=== PATIENT | male | born 1950 ===

== ENCOUNTER → 2022-03-28 13:33 | Outpatient (CLI) | payer OTHER, SELFPAY ==
[2022-03-28 14:18] LABS: COVID19 -Nasal RAPID Negative (Negative)
== END ==
PROVIDERS: Visit Provider Physician Assistant
DX: Z20.822 Contact with and (suspected) exposure to COVID-19 (principal)
CPT/HCPCS: 87635

== ENCOUNTER 2024-03-04 00:15 | Observation (INO) | payer OTHER, SELFPAY ==
[2024-03-04] VITALS (12 sets, daily range): BP systolic 131–172; BP diastolic 63–95; PULSE 56–83; RESP 15–18; TEMP 36.7–36.9; O2SAT 93–98; BMI 25.8; BMI 26.2
--- NOTE | 2024-03-04 00:52 | DI.CT.S_ITS ---
PROCEDURE: CT ABDOMEN PELVIS W CON INDICATIONS: ABD DISTENSION, N/V TECHNIQUE: After the administration of intravenous contrast, axial sections acquired from the lung bases to the pubic symphysis. Coronal and sagittal reformats were performed. For radiation dose reduction, the following was used: automated exposure control, adjustment of mA and/or kV according to patient size. COMPARISON: None. FINDINGS: Image quality: Diagnostic. Lower Chest: Bilateral lung bases are clear. Heart size is enlarged, no pericardial effusion. ABDOMEN: Liver: No solid mass. There is mild hepatomegaly. Gallbladder: No radiopaque gallstones or wall thickening. Biliary ducts: No biliary dilation. Pancreas: No ductal dilation. Spleen: Size is within normal limits. A few calcified granuloma are seen scattered in splenic parenchyma. Adrenal Glands: No adrenal nodules. Kidneys and Ureters: No hydronephrosis. No solid mass. No complex renal cystic lesion which requires follow up. Stomach and Bowel: There is fluid distended stomach and small bowel loops with a few air-fluid levels. Zone of transition is noted in right lower quadrant abdomen involving distal ileal loop best seen on series 2 image 78 and series 3, image 25. No abnormal bowel wall thickening. No abscess collection. Peritoneum: No abnormal intraperitoneal fluid. No free air. Ventral Wall: No significant ventral hernia. Abdominal Nodes: No retroperitoneal or mesenteric adenopathy by size criteria. Vessels: Aorta and inferior vena cava are normal in size. PELVIS: Pelvic Organs: Unremarkable. Bladder: No bladder wall thickening, accounting for underdistention. Pelvic Nodes: No enlarged lymph nodes. Miscellaneous: No inguinal hernias are seen. Bones: No aggressive osseous abnormality. IMPRESSION: 1. Finding is concerning for distal small bowel obstruction with zone of transition involving distal ileum in right lower quadrant as described above. No significant bowel wall thickening. No peritoneal free fluid or free air. 2. Mild hepatomegaly. No discrete hepatic lesion. Calcified granuloma scattered in spleen. Dictated by: Tomas Solano M.D. on 03/04/2024 at 1:48 Approved by: Tomas Solano M.D. on 03/04/2024 at 1:52
--- NOTE | 2024-03-04 01:02 | ED_ITS ---
HPI - Abdominal Pain General Chief Complaint: Abdominal Pain Stated Complaint: n/v abd pain Time Seen by Provider: 03/04/24 00:17 Source: patient Mode of arrival: Ambulatory History of Present Illness HPI narrative: 74-year-old male with history of hypertension, hyperlipidemia presents by private vehicle from home for several hours of abdominal distention with nausea and 1 episode of emesis. Patient states after dinner this evening he felt severe bloating and nausea that has not improved since onset. He states that this has never happened before. Has not had a bowel movement or passed gas since symptom onset. Patient states that previously he has been in his usual state of good health. Surgical history includes tonsillectomy and appendectomy as a child Related Data Home Medications Medication Instructions Recorded Confirmed amlodipine 5 mg tablet 5 mg PO DAILY 03/04/24 03/04/24 dorzolamide 22.3 mg-timolol 6.8 1 drp EYE-BOTH BID 03/04/24 03/04/24 mg/mL eye drops prednisolone acetate 1 % eye drp EYE-LEFT 03/04/24 drops,suspension Allergies Allergy/AdvReac Type Severity Reaction Status Date / Time No Known Drug Allergies Allergy Unverified 03/28/22 11:48 Patient History Social History Smoking Status: Former smoker Smoking Status: Former smoker Substance Use Type: does not use Exam Initial Vital Signs Initial Vital Signs: Vital Signs Temperature 98.5 F 03/04/24 00:31 Pulse Rate 83 03/04/24 00:31 Respiratory Rate 16 03/04/24 00:31 Blood Pressure 140/85 03/04/24 00:31 Pulse Oximetry 96 03/04/24 00:31 Oxygen Delivery Method Room Air 03/04/24 00:31 Const: Awake, alert, no acute distress, nontoxic appearing Cardiac: regular rate, regular rhythm RESP: unlabored, clear bilaterally, no wheezing GI: soft, distended, tenderness to deep palpation midepigastric region of abdomen MSK: Atraumatic, full range of motion, pulses equal Skin: Warm, Dry, intact, no rashes Neuro: AO x3, CN II-XII grossly intact, moves all extremities Course Orders Ordered: ED Orders 03/04/24 00:49 CBC Auto Diff [Complete Blood Count AUTO DIFF] Stat CMP [Comprehensive Metabolic Panel] Stat Lactate (Lactic Acid) Stat Lipase Stat Troponin & CK Cardiac Panel Stat 03/04/24 00:52 CT abdomen pelvis w con Stat 03/04/24 00:53 EKG-12 Lead Stat Sodium Chloride (Normal Saline 0.9%) 1,000 mls @ 125 mls/hr IV CONT [place] Metoclopramide HCl (Metoclopramide 10 Mg/2 Ml Inj) 10 mg IV Q6H [place] Morphine Sulfate (Morphine 2 Mg/Ml Inj) 2 mg IV Q4HR PRN PRN Reason: Pain, Severe (7-10) Discontinued Medications Sodium Chloride (Normal Saline 0.9%) 1,000 mls @ 1,000 mls/hr IV BOLUS ONE Stop: 03/04/24 01:51 Last Infusion: 03/04/24 02:16 Dose: Infused Documented By: Admin: 03/04/24 01:14 Dose: 1,000 mls/hr Documented By: CARTER Morphine Sulfate (Morphine 4 Mg/Ml Inj) 4 mg IV NOW ONE Stop: 03/04/24 00:53 Last Admin: 03/04/24 01:15 Dose: 4 mg Documented By: CARTER Ondansetron HCl (Ondansetron 4 Mg/2 Ml Inj) 4 mg IV NOW ONE Stop: 03/04/24 00:53 Last Admin: 03/04/24 01:14 Dose: 4 mg Documented By: CARTER Vital Signs Vital signs: Vital Signs - 8 hr 03/04/24 00:31 Temperature 98.5 F Pulse Rate 83 Respiratory Rate 16 Blood Pressure 140/85 Pulse Oximetry 96 Oxygen Delivery Method Room Air MDM - Abdominal Pain Differential Diagnosis Differential diagnosis: Likely abdominal pain, acute appendicitis and calculus of kidney Lab Data 03/04/24 00:49 03/04/24 00:49 Labs: Lab Results 03/04/24 Range/Units 00:49 WBC 15.7 H (4.5-11.0) X10^3/uL RBC 5.01 (4.5-5.9) X10^6/uL Hgb 14.9 (13.5-17.5) g/dL Hct 43.0 (41-53) % MCV 85.8 (80-100) fL MCH 29.8 (26-34) PG MCHC 34.7 (30-36) % RDW 13.1 (11.6-14.8) % Plt Count 291 (150-400) X10^3/uL Neut % (Auto) 86.5 H (50-75) % Lymph % (Auto) 6.5 L (25-40) % [place] % (Auto) 5.0 (3-14) % Eos % (Auto) 1.4 L (2-4) % Baso % (Auto) 0.6 (0-2) % Neut # (Auto) 97587 H (5985-9938) /uL Lymph # (Auto) 1000 L (4851-8408) /uL [place] # (Auto) 800 (0-900) /uL Eos # (Auto) 200 (0-450) /uL Baso # (Auto) 100 (0-100) /uL Sodium 135 L (137-145) mmol/L Potassium 4.2 (3.4-5.1) mmol/L Chloride 104 (98-107) mmol/L Carbon Dioxide 25 (22-32) mmol/L BUN 13 (9-20) mg/dL Creatinine 0.81 (0.66-1.25) mg/dL Estimated GFR > 60 (>60) mL/min BUN/Creatinine Ratio 16.0 (6-22) Glucose 163 H (80-110) mg/dL Lactate 0.9 (0.7-2.1) mmol/L Calcium 10.0 (8.4-10.2) mg/dL Total Bilirubin 0.6 (0.2-1.3) mg/dL AST 35 (17-59) IU/L ALT 26 (<50) IU/L Alkaline Phosphatase 100 (38-126) U/L Total Creatine Kinase 105 (55-170) U/L Troponin I < 0.012 (0.01-0.034) ng/mL Total Protein 8.3 H (6.3-8.2) g/dL Albumin 4.9 (3.5-5.0) g/dL Globulin 3.4 (1.7-4.1) g/dL Albumin/Globulin Ratio 1.4 (1.0-2.8) Lipase 630 H (23-300) U/L Imaging Data CT scan - abdomen/pelvis: Radiologist's Impression: PROCEDURE: CT ABDOMEN PELVIS W CON INDICATIONS: ABD DISTENSION, N/V TECHNIQUE: After the administration of intravenous contrast, axial sections acquired from the lung bases to the pubic symphysis. Coronal and sagittal reformats were performed. For radiation dose reduction, the following was used: automated exposure control, adjustment of mA and/or kV according to patient size. COMPARISON: None. FINDINGS: Image quality: Diagnostic. Lower Chest: Bilateral lung bases are clear. Heart size is enlarged, no pericardial effusion. ABDOMEN: Liver: No solid mass. There is mild hepatomegaly. Gallbladder: No radiopaque gallstones or wall thickening. Biliary ducts: No biliary dilation. Pancreas: No ductal dilation. Spleen: Size is within normal limits. A few calcified granuloma are seen scattered in splenic parenchyma. Adrenal Glands: No adrenal nodules. Kidneys and Ureters: No hydronephrosis. No solid mass. No complex renal cystic lesion which requires follow up. Stomach and Bowel: There is fluid distended stomach and small bowel loops with a few air-fluid levels. Zone of transition is noted in right lower quadrant abdomen involving distal ileal loop best seen on series 2 image 78 and series 3, image 25. No abnormal bowel wall thickening. No abscess collection. Peritoneum: No abnormal intraperitoneal fluid. No free air. Ventral Wall: No significant ventral hernia. Abdominal Nodes: No retroperitoneal or mesenteric adenopathy by size criteria. Vessels: Aorta and inferior vena cava are normal in size. PELVIS: Pelvic Organs: Unremarkable. Bladder: No bladder wall thickening, accounting for underdistention. Pelvic Nodes: No enlarged lymph nodes. Miscellaneous: No inguinal hernias are seen. Bones: No aggressive osseous abnormality. IMPRESSION: 1. Finding is concerning for distal small bowel obstruction with zone of transition involving distal ileum in right lower quadrant as described above. No significant bowel wall thickening. No peritoneal free fluid or free air. 2. Mild hepatomegaly. No discrete hepatic lesion. Calcified granuloma scattered in spleen. Dictated by: Tomas Solano M.D. on 03/04/2024 at 1:48 Approved by: Tomas Solano M.D. on 03/04/2024 at 1:52 MDM Narrative Medical decision making narrative: Well-appearing patient with several hours of distention and nausea. 1-2 episodes of vomiting at home prior to arrival. Abdomen is soft but does have distention on exam. Pain medications, antiemetics ordered. Laboratory work significant for WBC count 15.7, hemoglobin 14.9, platelet count 291, sodium 135, potassium 4.2, creatinine 0.81, normal liver enzymes, troponin undetectable. Patient reassessed, feels much better after pain and nausea medications. CT of the abdomen and pelvis is concerning for small bowel obstruction with transition point in the right lower quadrant. Patient informed of lab and imaging results, recommended admission for observation and monitoring to ensure resolution. Recommended NG tube placement for small bowel decompression. Patient amenable to admission but declined NG tube placement at this time stating that he would like to try conservative management with just bowel rest and fluids. Patient admitted to surgical service in stable condition. Discharge Plan Departure Patient Disposition: Admitted as Observation Clinical Impression: Small bowel obstruction, Abdominal pain Prescriptions: No Action amlodipine 5 mg tablet 5 mg PO DAILY dorzolamide-timolol 22.3-6.8 mg/mL drops 1 drp EYE-BOTH BID prednisolone acetate 1 % drops,suspension EYE-LEFT Referrals: Miscellaneous,Doctor, MD [Primary Care Provider] - Admit Date/Time: 03/04/24 02:20 Admit Provider: Kallie Rodriguez
[2024-03-04] MEDS: ONDANSETRON 4 MG/2 ML INJ IV (01:14)
[2024-03-04] MEDS: SODIUM CHLORIDE 0.9% 1,000 ML 1000 ML IV (01:14)
[2024-03-04] MEDS: MORPHINE 4 MG/ML INJ IV (01:15)
[2024-03-04 01:16] LABS: Lactate (Lactic Acid) 0.9 mmol/L (0.7-2.1)
[2024-03-04 01:17] LABS: Add Manual Diff / Slide Review NO; Alanine Aminotransferase 26 IU/L (<50); Albumin 4.9 g/dL (3.5-5.0); Albumin Globulin Ratio 1.4 (1.0-2.8); Alkaline Phosphatase 100 U/L (38-126); Aspartate Aminotransferase 35 IU/L (17-59); Basophils Absolute Auto 100 /uL (0-100); Basophils Percent Auto 0.6 % (0-2); Bilirubin Total 0.6 mg/dL (0.2-1.3); Blood Urea Nitrogen 13 mg/dL (9-20); Carbon Dioxide 25 mmol/L (22-32); Chloride 104 mmol/L (98-107); Creatine Kinase 105 U/L (55-170); Eosinophils Absolute Auto 200 /uL (0-450); Eosinophils Percent Auto 1.4 % (2-4); Estimated Glomerular Filt Rate > 60 mL/min (>60); Globulin 3.4 g/dL (1.7-4.1); Glucose 163 mg/dL (80-110); HEMOLYSIS < 15 (0-50); Hemoglobin 14.9 g/dL (13.5-17.5); Lipase 630 U/L (23-300); Lymphocytes Absolute Auto 1000 /uL (1100-4500); Lymphocytes Percent Auto 6.5 % (25-40); Mean Corpuscular HGB Conc 34.7 % (30-36); Mean Corpuscular Hemoglobin 29.8 PG (26-34); Mean Corpuscular Volume 85.8 fL (80-100); Monocytes Absolute Auto 800 /uL (0-900); Neutrophils Absolute Auto 13600 /uL (1500-7000); Neutrophils Percent Auto 86.5 % (50-75); Platelet Count 291 X10^3/uL (150-400); Potassium 4.2 mmol/L (3.4-5.1); Red Blood Cell Count 5.01 X10^6/uL (4.5-5.9); Red Cell Distribution Width 13.1 % (11.6-14.8); Sodium 135 mmol/L (137-145); Total Protein 8.3 g/dL (6.3-8.2); White Blood Cell Count 15.7 X10^3/uL (4.5-11.0)
--- NOTE | 2024-03-04 01:20 | EKG_ITS ---
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
[2024-03-04 01:29] LABS: Troponin I < 0.012 ng/mL (0.01-0.034)
[2024-03-04] MEDS: METOCLOPRAMIDE 10 MG/2 ML INJ IV ×2 (02:28→08:33)
[2024-03-04] MEDS: SODIUM CHLORIDE 0.9% 1,000 ML 125 ML IV (03:27)
--- NOTE | 2024-03-04 04:01 | PC.ADMIT ---
[email or web address] Admission Note: The patient,Carloz Green,74 y/o, was given written information regarding hospital policies, unit procedures and contact persons. Patient's smoking status: Former smoker. Vital Signs - 8 hr 03/04/24 00:31 03/04/24 00:38 03/04/24 00:38 Temperature 98.5 F Pulse Rate 83 80 Respiratory Rate 16 Blood Pressure 140/85 172/95 H Pulse Oximetry 96 96 Oxygen Delivery Method Room Air Room Air 03/04/24 01:00 03/04/24 01:00 03/04/24 01:37 Temperature Pulse Rate 74 74 Respiratory Rate 16 Blood Pressure 164/85 H Pulse Oximetry 94 93 Oxygen Delivery Method Room Air 03/04/24 01:38 03/04/24 01:38 03/04/24 02:00 Temperature Pulse Rate 73 Respiratory Rate 17 Blood Pressure 168/82 H 155/76 H Pulse Oximetry 96 Oxygen Delivery Method Room Air 03/04/24 02:00 03/04/24 02:30 03/04/24 02:30 Temperature Pulse Rate 62 73 Respiratory Rate 16 Blood Pressure 149/75 H Pulse Oximetry 97 94 Oxygen Delivery Method Room Air 03/04/24 03:00 03/04/24 03:00 03/04/24 03:30 Temperature Pulse Rate 59 L Respiratory Rate Blood Pressure 131/69 Pulse Oximetry 95 Oxygen Delivery Method Room Air 03/04/24 03:31 Temperature 98.1 F Pulse Rate 69 Respiratory Rate 18 Blood Pressure 157/81 H Pulse Oximetry 97 Oxygen Delivery Method Patient admitted to room 223 at 0315. A/Ox4, able to ambulate into BR steadily on own, urine sample obtained and sent to lab, clear yellow. Patient is burping frequently, but denies nausea. Abdomen is round, mildly distended, and tender. Currently rates pain 3/10, denies need for analgesic at this time. VSS. NS @ 125ml/hr. Declined to have wallet placed in safe. Oriented to room and call light.
[2024-03-04 06:46] LABS: Add Manual Diff / Slide Review NO; Basophils Absolute Auto 0 /uL (0-100); Basophils Percent Auto 0.3 % (0-2); Eosinophils Absolute Auto 0 /uL (0-450); Eosinophils Percent Auto 0.1 % (2-4); Hematocrit 35.7 % (41-53); Hemoglobin 12.6 g/dL (13.5-17.5); Lymphocytes Absolute Auto 1000 /uL (1100-4500); Lymphocytes Percent Auto 9.8 % (25-40); Mean Corpuscular HGB Conc 35.2 % (30-36); Mean Corpuscular Hemoglobin 30.5 PG (26-34); Mean Corpuscular Volume 86.7 fL (80-100); Monocytes Absolute Auto 700 /uL (0-900); Monocytes Percent Auto 6.3 % (3-14); Neutrophils Absolute Auto 8800 /uL (1500-7000); Neutrophils Percent Auto 83.5 % (50-75); Platelet Count 245 X10^3/uL (150-400); Red Blood Cell Count 4.11 X10^6/uL (4.5-5.9); Red Cell Distribution Width 13.3 % (11.6-14.8); White Blood Cell Count 10.6 X10^3/uL (4.5-11.0)
[2024-03-04 06:59] LABS: Lipase 214 U/L (23-300)
--- NOTE | 2024-03-04 07:47 | DI.RAD.S_ITS ---
PROCEDURE: XR GASTROGRAFIN CHALLENGE COMPARISON: [facility], CT, CT ABDOMEN PELVIS W CON, 03/04/2024, 1:29. INDICATIONS: sbo Findings and impression: Oral contrast is seen throughout the large and small bowel loops. The distal extent is seen in the rectum. This excludes a complete bowel obstruction. Indeterminate small densities are seen in the left lower quadrant. Osseous structures are unremarkable on limited radiographic evaluation. Dictated by: Alec Verdugo M.D. on 03/04/2024 at 14:00 Approved by: Alec Verdugo M.D. on 03/04/2024 at 14:01
--- NOTE | 2024-03-04 07:47 | PM.HP.1 ---
History of Present Illness History of Present Illness Date Patient Seen: 03/04/24 Time Patient Seen: 14:34 Chief complaint: n/v abd pain Narrative: Carloz is a 74-year-old man [facility] appendectomy who presents to [facility] with abdominal pain with associated distention. CT abdomen pelvis demonstrates a small-bowel obstruction without free free fluid or air. Not actively vomiting no nasogastric tube was placed. Since admission he has return of bowel function and several bowel movements nasogastric tube. Currently feels well hungry and passing gas. He has never had a prior small bowel obstruction. [facility], [facility] Surgical History (Updated 03/04/24 @ 14:39 by Ross Nam MD) History of appendectomy Social History household members: spouse Smoking Status: Former smoker Meds Home Medications and Allergies Home Medications Medication Instructions Recorded Confirmed Type amlodipine 5 mg tablet 5 mg PO DAILY 03/04/24 03/04/24 History dorzolamide 22.3 mg-timolol 6.8 1 drp EYE-BOTH BID 03/04/24 03/04/24 History mg/mL eye drops prednisolone acetate 1 % eye drp EYE-LEFT 03/04/24 History drops,suspension Allergies Allergy/AdvReac Type Severity Reaction Status Date / Time No Known Drug Allergies Allergy Unverified 03/28/22 11:48 Exam Vital Signs (past 8 hours): - 03/04/24 00:31 03/04/24 00:38 03/04/24 00:38 Temperature 98.5 F Pulse Rate 83 80 Respiratory Rate 16 Blood Pressure 140/85 172/95 H Pulse Oximetry 96 96 Oxygen Delivery Method Room Air Room Air Oxygen Flow Rate 03/04/24 01:00 03/04/24 01:00 03/04/24 01:37 Temperature Pulse Rate 74 74 Respiratory Rate 16 Blood Pressure 164/85 H Pulse Oximetry 94 93 Oxygen Delivery Method Room Air Oxygen Flow Rate 03/04/24 01:38 03/04/24 01:38 03/04/24 02:00 Temperature Pulse Rate 73 Respiratory Rate 17 Blood Pressure 168/82 H 155/76 H Pulse Oximetry 96 Oxygen Delivery Method Room Air Oxygen Flow Rate 03/04/24 02:00 03/04/24 02:30 03/04/24 02:30 Temperature Pulse Rate 62 73 Respiratory Rate 16 Blood Pressure 149/75 H Pulse Oximetry 97 94 Oxygen Delivery Method Room Air Oxygen Flow Rate 03/04/24 03:00 03/04/24 03:00 03/04/24 03:20 Temperature 98.1 F Pulse Rate 59 L 64 Respiratory Rate 18 Blood Pressure 131/69 157/81 H Pulse Oximetry 95 97 Oxygen Delivery Method Oxygen Flow Rate 0 03/04/24 03:30 03/04/24 03:31 Temperature 98.1 F Pulse Rate 69 Respiratory Rate 18 Blood Pressure 157/81 H Pulse Oximetry 97 Oxygen Delivery Method Room Air Oxygen Flow Rate Oxygen Delivery Method Room Air Oxygen Flow Rate 0 Narrative Exam Narrative: GENERAL: Thin elderly man, resting comfortably, in no acute distress. HEENT: Normocephalic, atraumatic. No scleral icterus CHEST: Rising symmetrically. No audible wheezes CARDIOVASCULAR: Warm and well perfused. Regular rate ABDOMEN: Soft, non-tender, non-distended Objective Labs 03/04/24 06:27 03/04/24 00:49 Labs: Laboratory Results - last 24 hr 03/04/24 03/04/24 00:49 06:27 WBC 15.7 H 10.6 RBC 5.01 4.11 L Hgb 14.9 12.6 L Hct 43.0 35.7 L MCV 85.8 86.7 MCH 29.8 30.5 MCHC 34.7 35.2 RDW 13.1 13.3 Plt Count 291 245 Neut % (Auto) 86.5 H 83.5 H Lymph % (Auto) 6.5 L 9.8 L [place] % (Auto) 5.0 6.3 Eos % (Auto) 1.4 L 0.1 L Baso % (Auto) 0.6 0.3 Neut # (Auto) 34171 H 8800 H Lymph # (Auto) 1000 L 1000 L [place] # (Auto) 800 700 Eos # (Auto) 200 0 Baso # (Auto) 100 0 Sodium 135 L Potassium 4.2 Chloride 104 Carbon Dioxide 25 BUN 13 Creatinine 0.81 Estimated GFR > 60 BUN/Creatinine Ratio 16.0 Glucose 163 H Lactate 0.9 Calcium 10.0 Total Bilirubin 0.6 AST 35 ALT 26 Alkaline Phosphatase 100 Total Creatine Kinase 105 Troponin I < 0.012 Total Protein 8.3 H Albumin 4.9 Globulin 3.4 Albumin/Globulin Ratio 1.4 Lipase 630 H 214 D Assessment & Plan Assessment and plan (1) Small bowel obstruction: Status: Acute Assessment & Plan narrative: 74-year-old man PMH appendectomy who is admitted for management of a small-bowel obstruction. Imaging and laboratory studies reviewed. He had spontaneous resolution of his obstruction with conservative measures today. If he is tolerant of a diet then he may discharge home. Quality VTE Deep Vein Thrombosis/Pulmonary Embolism Present on Admission: No
[2024-03-04] MEDS: HEPARIN 5,000 UNIT/ML VIAL 5000 UNIT SUBCUT (08:33)
[2024-03-04] MEDS: DORZOLAMIDE/TIMOLOL OPHTH 10 ML 1 DROPS EYE-BOTH (09:59)
--- NOTE | 2024-03-04 14:08 | CM.DANOTE ---
Brief DCP Assessment Note pt is a 74yo male from [facility] following SBO. 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 Per ED report, pt is an otherwise healthy man that originally felt better in ED after pain and nausea meds but was admitted after CT of abdomen found concern for SBO. Per propellant charge zone assembler in morning rounds, plan for conservative management, NPO, and pt declined NG tube. Per chart, dc order placed. Per RN report, no obvious/identified CM needs at this time. spouse at bedside P: dc home today with spouse support. no CM needs identified at this time. CM team will follow as needed. MARTIN Martinez Discharge Planning/Care Management CM Discharge Assessment Start: 03/04/24 14:07 Freq: Status: Active Protocol: Document 03/04/24 14:08 (Rec: 03/04/24 14:08 [id number]) Discharge Planning Assessment Assigned Vacuum Drier Operator MARTIN Dang DPOA/Assigned Designee Name SpouseLuis Contact Information [phone] Advance Directives? No History Provided By Patient Prior Living Arrangements Apartment/Condo Household Members spouse Type of transporation used prior to Drives own vehicle admit Independent with ADL's Yes Is patient alert and oriented? Yes Barriers to Discharge No Discharge Plan Home Referrals Initiated None needed Whiteboard Updated in Patient Room with No name and ext. # of Vacuum Drier Operator Review Status In Process Please Provide Date Initial DC 03/04/24 Assessment Was Performed Next Review Type Continued Stay Review
== END 2024-03-04 14:55 | disposition home or self-care (01) ==
LOC: ED 00:35 → AC 02:21
PROVIDERS: Admitting Provider Surgery; Emergency Provider Emergency Medicine; Visit Provider Surgery
DX: K56.609 Unspecified intestinal obstruction, unspecified as to partial versus complete obstruction (principal)
CPT/HCPCS: 36415; 74018; 74177; 80053; 82550; 83605; 83690; 84484; 85025; 93005; 96361; 96372; 96374; 96375; 96376; 99234; 99284; G0378; J1644; J2270; J2405; J2765; Q9967